=== PATIENT | male | born 1970 | race African-American/Black ===

== ENCOUNTER → 2021-12-10 | Outpatient (CLI) | payer OTHER ==
[~2021-12-10] MED LIST: CELEBREX50 MG PO; FLONASE NASAL S16 GM NS; LEVAQUIN 750MG750 M1 PO; NO HOME MEDICATIONS; PREDNISONE20 MG PO; RT ADVAIR 228 DISKUS IH; RT SPIRIVA18 MCG IH; SINGULAIR 110 MG/TAB PO; ZYRTEC 10MG10 MG PO
== END ==
LOC: COL.RAD 06:56
DX: D86.0 Sarcoidosis of lung (principal); J47.9 Bronchiectasis, uncomplicated
CPT/HCPCS: Q9967